=== PATIENT | female | born 1975 | race Caucasian/White ===

== ENCOUNTER 2016-05-30 18:38 | Inpatient (IN) | payer OTHER ==
[~2016-05-30] VITALS: Ht 170.2 cm; Wt 126.1 kg
--- NOTE | 2016-05-30 19:55 | PD ---
HPI Chief Complaint contractions Date Seen: May 30, 2016 Time Seen: 19:15 Travel History International Travel<30 Days: No Contact w/Intl Traveler<30Days: No Known Affected Area: No History of Present Illness HPI 41-year-old 2 para 1 at 39 weeks gestation who has been having contractions every 5 minutes the past several hours. She denies rupture membranes, bleeding, or decreased movement. Para: 11 : 22 History Past Medical History Narrative Medical asthma Obstetric History Obstetric History one prior vd uncomplicated course Past Surgical History Surgical History: No Previous Surgery Family History Family History: Negative Social History Alcohol Use: No Tobacco Use: No Substance Abuse: No Allergies-Medications Narrative Medication albuterol Review of Systems Except as stated in HPI: all other systems reviewed are Neg Physical Exam Narrative GENERAL: Well-nourished, well-developed patient. SKIN: Warm and dry. HEAD: Normocephalic and atraumatic. EYES: No scleral icterus. No injection or drainage. ENT: No nasal drainage noted. Mucous membranes pink. Airway patent. NECK: Supple, trachea midline. No JVD. CARDIOVASCULAR: Regular rate and rhythm without murmurs, gallops, or rubs. RESPIRATORY: Breath sounds equal bilaterally. No accessory muscle use. ABDOMEN/GI: Abdomen soft, non-tender, bowel sounds present, no rebound, no guarding Gravid to [-] weeks size Fundal Height: [38-] GENITOURINARY: External Genitalia: intact and normal in appearance BUS glands: [-] Cervix: [-1] Dilatation: [-] Effacement: [-50] Station: [-2-] Presentation: [-] Membranes: [intact] Uterine Contractions: [q5-] FHT's: Category: [-1] Baseline: [-] Reactive: [-yes] Variability: [-] Decels: [-] EXTREMITIES: No cyanosis or edema. BACK: Nontender without obvious deformity. No CVA tenderness. NEUROLOGICAL: Awake and alert. Motor and sensory grossly within normal limits. Five out of 5 muscle strength in all muscle groups. Normal speech. 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 Jorge Salmeron MD May 30, 2016 19:54
[2016-05-30] MEDS: LACTATED RINGER'S 1000 ML INJ 1,000 ML IV SCH ×2 (21:20→23:01)
[2016-05-30 22:00] VITALS: RESP 18
[2016-05-30] MEDS ORDERED: LACTATED RINGER'S 1000 ML INJ 1,000 ML IV PRN (22:34)
[2016-05-30] MEDS ORDERED: LIDOCAINE HCL 1% 50 ML VIAL I-DERMAL PRN (22:45)
[2016-05-30] MEDS ORDERED: CITRIC ACID-SODIUM CITRATE LIQ 30 ML UDC PO SCH (22:45)
[2016-05-30] MEDS ORDERED: OXYTOCIN 30 UNITS-500ML PREMIX 500 ML IV ONE (22:45)
[2016-05-30] MEDS ORDERED: LIDOCAINE HCL 1% 50 ML VIAL INFIL PRN (22:45)
[2016-05-30] MEDS ORDERED: SODIUM CHLORID 0.9% 500 ML INJ 500 ML IV PRN (22:45)
[2016-05-30] MEDS ORDERED: MINERAL OIL 10 ML VIAL TOPICAL PRN (22:45)
[2016-05-30 22:52] LABS: AUTOMATED NEUTROPHIL # 8.3 TH/MM3 (1.8-7.7); BASOPHIL # 0.1 TH/MM3 (0-0.2); BASOPHIL % 0.6 % (0.0-2.0); EOSINOPHIL # 0.2 TH/MM3 (0-0.4); EOSINOPHIL % 1.8 % (0.0-4.0); HEMATOCRIT 41.6 % (35.0-46.0); LYMPH % 15.2 % (9.0-44.0); LYMPHOCYTE # 1.6 TH/MM3 (1.0-4.8); MEAN CELL VOLUME 87.7 FL (80.0-100.0); MEAN CORPUSCULAR HEMOGLOBIN 30.8 PG (27.0-34.0); MEAN CORPUSCULAR HGB CONC 35.1 % (32.0-36.0); MONO % 4.3 % (0.0-8.0); NEUT % 78.1 % (16.0-70.0); PLATELET COUNT 219 TH/MM3 (150-450); RED BLOOD COUNT 4.74 MIL/MM3 (4.00-5.30); RED CELL DISTRIBUTION WIDTH 12.6 % (11.6-17.2); WHITE BLOOD COUNT 10.6 TH/MM3 (4.0-11.0)
[2016-05-30] MEDS ORDERED: SODIUM CHLOR 0.9% 1000 ML INJ 1,000 ML IV PRN (22:54)
[2016-05-30 22:58] VITALS: BP 118/66; PULSE 76
[2016-05-30 22:59] LABS: BLOOD, URINE NEG (NEG); COMMENT (UR) CULT NOT INDICATED; CULTURE IF INDICATED CULT NOT INDICATED; GLUCOSE,URINE NEG (NEG); KETONE, URINE NEG (NEG); NITRITE,URINE NEG (NEG); PH, URINE 6.5 (5.0-8.5); SQUAMOUS EPITHELIAL CELL URINE 4 /hpf (0-5); URINE COLOR LIGHT-YELLOW (YELLW/STRAW)
[2016-05-30 23:00] VITALS: RESP 18
[2016-05-30 23:08] LABS: HEMO FLAGS AUTO DIFF
[2016-05-30 23:46] LABS: PLATELET ESTIMATE SMEAR NORMAL (NORMAL)
[2016-05-30 23:47] LABS: PLATELET MORPHOLOGY NORMAL (NORMAL); SCAN/DIFF AUTO DIFF CONFIRMED
[2016-05-31] VITALS (106 sets, daily range): BP systolic 101–154; BP diastolic 46–99; PULSE 60–133; RESP 18–24; TEMP 97.7–98.6; O2SAT 96–100
[2016-05-31] MEDS: LACTATED RINGER'S 1000 ML INJ 1,000 ML IV SCH ×2 (05:40→09:01)
[2016-05-31] MEDS ORDERED: fentaNYL 2MCG-BUPIV 0.125% INJ 100 ML ONE (05:41)
[2016-05-31] MEDS ORDERED: ePHEDrine/NS 50 MG/5 ML SYR IV PRN (07:15)
[2016-05-31] MEDS ORDERED: fentaNYL 2MCG-BUPIV 0.125% INJ 100 ML EPIDURAL SCH (07:15)
[2016-05-31] MEDS ORDERED: DO NOT ADMINISTER ANTICOAGULANTS XX PRN (07:15)
[2016-05-31] MEDS ORDERED: NO SYSTEM NARCOTICS XX PRN (07:15)
[2016-05-31] MEDS ORDERED: OXYTOCIN 30 UNITS-500ML PREMIX 500 ML IV SCH (08:30)
[2016-05-31] MEDS ORDERED: OXYTOCIN 10 UNIT/ML AMP ONE (10:24)
[2016-05-31] MEDS: ACETAMINOPHEN 1000 MG/100 ML VIAL IV ONE ×2 (10:25→10:55)
[2016-05-31] MEDS ORDERED: ceFAZolin INJ 1,000 MG VIAL ONE (10:34)
[2016-05-31 11:16] LABS: BLOOD GAS BASE EXCESS -4.4 mmol/L (-2-2); BLOOD GAS O2 HGB SATURATION 12 % (90-100); CORD BLOOD GAS HCO3 21 mmol/L (21-29); CORD BLOOD GAS PCO2 40 mmHG (34-78); CORD BLOOD GAS PH 7.33 (7.14-7.42); CORD BLOOD GAS PO2 11 mmHG (3.0-40.0); DRAW SITE CORD BLOOD; STAT NO
[2016-05-31] MEDS ORDERED: MORPHINE SULFATE PF 5 MG/10 ML VIAL ONE (11:36)
[2016-05-31] MEDS ORDERED: ONDANSETRON HCL 4 MG/2 ML VIAL ONE (11:36)
--- NOTE | 2016-05-31 11:37 | HHI.DCPOC ---
Discharge Care Plan Diagnosis: (1) S/P primary low transverse Your Health Problems Are: delivery Report Symptoms to Your Doctor -Temperate above 100.5 degrees -Redness, of incision or excessive or foul smelling drainage -Unusual pain or calf pain -Increased vaginal bleeding -Painful or difficulty urinating -Feelings of extreme sadness or anxiety after 2 weeks Goals to Promote Your Health * To prevent worsening of your condition and complications * To maintain your health at the optimal level Directions to Meet Your Goals Take your medications as prescribed Follow your dietary instruction Follow activity as directed Ensure plenty of rest for recovery Drink fluids for hydration Keep your appointments as scheduled Take your immunizations and boosters as scheduled If your symptoms worsen call your PCP, if no PCP go to Urgent Care Center or Emergency Room Smoking is Dangerous to Your Health. Avoid second hand smoke Call the 24-hour crisis hotline for domestic abuse at Nay Carter MD May 31, 2016 11:37
[2016-05-31] MEDS ORDERED: ONDANSETRON HCL 4 MG/2 ML VIAL IV PUSH PRN (11:45)
[2016-05-31] MEDS ORDERED: oxyCODONE/ACETAMINOPHEN 5 MG/325 MG TAB PO PRN (11:45)
[2016-05-31] MEDS ORDERED: SODIUM CHLORIDE 0.9% FLUSH 5 ML FLUSH IV SCH (11:45)
[2016-05-31] MEDS ORDERED: OXYTOCIN 30 UNITS-500ML PREMIX 500 ML IV ONE (11:45)
[2016-05-31] MEDS ORDERED: ZOLPIDEM TARTRATE 5 MG TAB PO PRN (11:45)
[2016-05-31] MEDS ORDERED: SODIUM CHLORIDE 0.9% FLUSH 5 ML FLUSH IV PRN (11:45)
--- NOTE | 2016-05-31 11:45 | PD.OB.DELI ---
Procedure Note Section Procedure Pre Op Diagnosis: (1) Non-reassuring electronic monitoring tracing Post Op Diagnosis: (1) Non-reassuring electronic monitoring tracing (2) S/P primary low transverse Performed by Nay Carter Procedure: Primary Low Transverse Sec Indication for delivery: Nonreassuring heart tracing Informed consent obtained: For anesthesia, For procedure Confirmed correct: Patient, Procedure, Site, Time-out taken Anesthesia: Epidural Medication prior to procedure: As documented in eMAR Monitoring during procedure: Blood pressure monitoring, manager monitoring, Pulse oximetry Urinary catheter: Inserted using sterile technique (previously when epidural placed in labor room), To dependent drainage, ml urine output (600) Sterile preparation: Duraprep, In usual fashion, With drapes to expose affected area Position: Supine with wedge to right side Operative Features Skin Incision: Pfannenstiel Uterine Incision: Low transverse w/knife / blunt ext Membranes Ruptured: Previously, Amount of liquid (scant), Appearance of fluid ( thick meconium) Presentation: Vertex (with neck hyperextended prior to delivery; caput & molding present) Time of : 10:58 Delivery of : Uneventful : Female One Minute : 2 Five Minute : 8 Weight: 2950g (6#8oz) Status of : Viable, Cord blood, Nursery present Placenta delivered: Intact Medications: Antibiotics (ancef 2g IV preop) Estimated blood loss: 600 mL Procedure tolerated: Well Maternal Condition: Stable Condition: Stable (nursery status; small superficial L scalp laceration, hemostatic with pressure; nursery & family aware) Procedure in detail see dictated op note for full details Nay Carter MD May 31, 2016 11:45
[2016-05-31] MEDS ORDERED: OXYTOCIN 30 UNITS-500ML PREMIX 500 ML ONE (12:25)
[2016-05-31] MEDS ORDERED: EPIDURAL-DO NOT ADMINISTER ANTICOAGULANTS XX PRN (15:15)
[2016-05-31] MEDS ORDERED: ceFAZolin 2 GM PREMIX 50 ML IV ONE (15:15)
[2016-05-31] MEDS ORDERED: EPIDURAL-DIPHENHYDRAMINE HCL 50 MG CAP PO PRN (15:15)
[2016-05-31] MEDS ORDERED: EPIDURAL-NALOXONE HCL 0.4 MG/ML AMP IV PRN (15:15)
[2016-05-31] MEDS ORDERED: EPIDURAL-NO SYSTEMIC NARCOTICS XX PRN (15:15)
[2016-05-31] MEDS ORDERED: EPIDURAL-DIPHENHYDRAMINE HCL 50 MG/ML VIAL IV PUSH PRN (15:15)
[2016-05-31] MEDS ORDERED: ACETAMINOPHEN 1000 MG/100 ML VIAL IV SCH (16:00)
[2016-05-31] MEDS ORDERED: LACTATED RINGER'S 1000 ML INJ 1,000 ML IV SCH (16:41)
[2016-05-31] MEDS ORDERED: ACETAMINOPHEN 1000 MG/100 ML VIAL IV PRN (18:30)
[2016-05-31] MEDS: oxyCODONE/ACETAMINOPHEN 5 MG/325 MG TAB PO PRN ×2 (19:01→23:12)
[2016-05-31] MEDS: SIMETHICONE 80 MG CHEWABLE TAB PO PRN ×2 (19:01→23:42)
[2016-05-31] MEDS ORDERED: OXYTOCIN 30 UNITS-500ML PREMIX 500 ML IV PRN (21:45)
[2016-06-01] VITALS (8 sets, daily range): BP systolic 126–139; BP diastolic 58–82; PULSE 73–86; RESP 16–20; TEMP 98–98.4
[2016-06-01] MEDS: oxyCODONE/ACETAMINOPHEN 5 MG/325 MG TAB PO PRN ×6 (03:33→23:49)
[2016-06-01 05:38] LABS: AUTOMATED NEUTROPHIL # 9.4 TH/MM3 (1.8-7.7); BASOPHIL % 0.4 % (0.0-2.0); EOSINOPHIL # 0.1 TH/MM3 (0-0.4); EOSINOPHIL % 0.9 % (0.0-4.0); HEMATOCRIT 31.3 % (35.0-46.0); HEMO FLAGS DIFF FINAL; LYMPHOCYTE # 1.4 TH/MM3 (1.0-4.8); MEAN CELL VOLUME 89.6 FL (80.0-100.0); MEAN CORPUSCULAR HEMOGLOBIN 30.3 PG (27.0-34.0); MEAN CORPUSCULAR HGB CONC 33.9 % (32.0-36.0); MONO % 3.4 % (0.0-8.0); NEUT % 83.3 % (16.0-70.0); PLATELET COUNT 167 TH/MM3 (150-450); RED BLOOD COUNT 3.49 MIL/MM3 (4.00-5.30); RED CELL DISTRIBUTION WIDTH 12.8 % (11.6-17.2); WHITE BLOOD COUNT 11.3 TH/MM3 (4.0-11.0)
[2016-06-01] MEDS: SIMETHICONE 80 MG CHEWABLE TAB PO PRN ×3 (08:01→20:22)
[2016-06-01] MEDS: DOCUSATE SODIUM 50 MG/SENNA 8.6 MG TAB PO PRN ×2 (08:01→20:22)
--- NOTE | 2016-06-01 08:30 | HHI.OB ---
Subjective Post Operative Day: 1 Remarks doing well, amblating, able to void. feels a little sore Objective Vitals/I&O Vital Signs Date Time Temp Pulse Resp B/P Pulse Ox O2 Delivery O2 Flow Rate FiO2 06/01/16 04:42 20 06/01/16 04:00 98.0 74 131/63 06/01/16 04:00 18 06/01/16 04:00 16 06/01/16 02:00 16 06/01/16 01:00 16 06/01/16 00:00 98.0 06/01/16 00:00 18 06/01/16 00:00 73 132/58 05/31/16 23:00 18 05/31/16 22:00 18 05/31/16 21:00 20 05/31/16 20:00 97.9 20 05/31/16 20:00 89 143/82 05/31/16 17:15 98.1 76 20 144/81 05/31/16 14:50 98.6 63 20 153/77 05/31/16 13:10 97.8 143/78 05/31/16 13:10 18 05/31/16 13:02 60 100 05/31/16 12:55 18 05/31/16 12:55 64 132/71 99 05/31/16 12:40 63 18 134/74 05/31/16 12:38 99 05/31/16 12:25 20 130/71 05/31/16 12:24 76 99 05/31/16 12:24 72 97 05/31/16 12:10 69 20 109/58 96 05/31/16 12:10 18 99 05/31/16 11:55 97 05/31/16 11:55 68 20 124/67 05/31/16 11:55 96 05/31/16 11:35 72 119/60 05/31/16 11:35 97.7 24 05/31/16 11:35 99 05/31/16 10:21 133 144/99 05/31/16 10:20 100 05/31/16 10:20 112 05/31/16 10:15 78 05/31/16 10:10 100 05/31/16 10:10 78 05/31/16 10:05 80 05/31/16 10:05 100 05/31/16 10:01 71 131/63 05/31/16 10:00 73 05/31/16 09:41 73 138/61 05/31/16 09:40 74 05/31/16 09:35 78 05/31/16 09:32 77 142/53 05/31/16 09:30 72 05/31/16 09:25 73 05/31/16 09:21 75 134/57 05/31/16 09:20 76 100 05/31/16 09:15 82 05/31/16 09:10 67 05/31/16 09:05 98.4 70 18 05/31/16 09:01 71 138/58 05/31/16 09:00 76 05/31/16 08:55 69 05/31/16 08:50 70 05/31/16 08:45 70 05/31/16 08:40 78 05/31/16 08:35 80 05/31/16 08:30 74 Result Diagram: 06/01/16 0528 Objective Remarks GENERAL: Well-nourished, well-developed patient. CARDIOVASCULAR: Regular rate and rhythm without murmurs, gallops, or rubs. RESPIRATORY: Breath sounds equal bilaterally. No accessory muscle use. ABDOMEN/GI: Abdomen soft, non-tender, bowel sounds present. Incision: dressing, Clean, dry and intact. Fundus: Firm, non-tender at umbilicus. GENITOURINARY: Light to moderate bleeding. EXTREMITIES: No cyanosis or edema, non-tender, without signs of DVT. Medications and IVs Current Medications Medications (Trade) Dose Ordered Sig/Magalys Route Start Time Stop Time Status Last Admin (Lr 1000 ml Inj) 1,000 ml @ 100 mls/hr Q10H IV 05/31/16 16:41 06/01/16 12:40 05/31/16 19:02 (NS Flush) 2 ml BID IV 05/31/16 11:45 (NS Flush) 2 ml UNSCH PRN IV 05/31/16 11:45 (Mylicon Chew) 80 mg QID PRN PO 05/31/16 11:45 06/01/16 08:01 (Tylenol) 650 mg Q6H PRN PO 06/01/16 11:45 (Percocet 5-325 Mg) 1 tab Q4H PRN PO 05/31/16 11:45 (Percocet 5-325 Mg) 2 tab Q4H PRN PO 05/31/16 11:45 06/01/16 08:01 (Lacy-Colace) 2 tab Q12H PRN PO 05/31/16 11:45 06/01/16 08:01 (Ambien) 5 mg HS PRN PO 05/31/16 11:45 (M-M-R Ii Inj) 0.5 ml ONCE ONCE SQ 06/01/16 16:00 06/01/16 16:01 (Boostrix Inj) 0.5 ml ONCE ONCE IM 06/01/16 16:00 06/01/16 16:01 (Zofran Inj) 4 mg Q6H PRN IV PUSH 05/31/16 11:45 Miscellaneous Information NO SYSTEMIC NARCOTICS TO BE GIVEN FO... UNSCH PRN XX 05/31/16 15:15 06/01/16 15:14 (Narcan Inj) 0.4 mg UNSCH PRN IV 05/31/16 15:15 06/01/16 15:14 (Benadryl Inj) 25 mg Q6H PRN IV PUSH 05/31/16 15:15 06/01/16 15:14 (Benadryl) 50 mg Q6H PRN PO 05/31/16 15:15 06/01/16 15:14 Miscellaneous Information ALL NURSING DEPARTMENTS UNSCH PRN XX 05/31/16 15:15 06/01/16 15:14 Assessment/Plan Problem List: (1) S/P primary low transverse Assessment and Plan POD 1 LTCD for NRFHT Cont routine post op care, encourage ambulation. Advance diet as tolerated Discharge Planning POD 3 Anisha Anaya MD Jun 01, 2016 08:30
[2016-06-01] MEDS ORDERED: ACETAMINOPHEN 325 MG TAB PO PRN (11:45)
--- NOTE | 2016-06-01 13:22 | MP ---
cc: KAYLENE LYNN DATE OF SURGERY 05/31/2016 PREOPERATIVE DIAGNOSIS 1. Intrauterine at term. 2. Non-reassuring heart tones 3. Thick meconium POSTOPERATIVE DIAGNOSIS 1. Intrauterine at term. 2. Non-reassuring heart tones 3. Thick meconium 4. Postop day number zero. INDICATIONS Georgette South is a 41-year-old 2 now para 2-0-0-2 who was admitted through the labor and delivery triage area on the evening of May 30. She progressed on exam, had rupture of membranes and dilated to 5 cm at approximately 04:30 in the morning on May 31. Thick meconium was noted at time of rupture and an IUPC was placed due to the patient not having much change in dilation after 07:00 a.m. With Pitocin augmentation, the patient began to have non-reassuring heart tracing, Pitocin was turned off. After period of approximately three hours, the patient continued to have a category II tracing not alleviated by conservative measures and no cervical change at that time. It was decided that was indicated. PROCEDURE PERFORMED Primary low transverse delivery. SURGEON Kaylene Lynn MD TYPE OF ANESTHESIA Epidural ESTIMATED BLOOD LOSS 600 mL IV FLUID PLACEMENT 1100 mL URINE OUTPUT 600 mL of clear fluid draining in a Collado bag at the end of the procedure. SPECIMEN None COMPLICATIONS Include a small superficial left scalp laceration to the infant and thick meconium. COUNTS Sponge, lap, instrument and needle are correct x2 at the conclusion of the procedure. PROPHYLAXIS Ancef 2 grams IV was given pre-incision and SCD's were on and functioning throughout the entire case. INTRAOPERATIVE FINDINGS Include a female who on entry into the uterine cavity was found to have neck in hyper-extension with caput and molding deep in the canal. Once she was delivered, she was somewhat limp and did not initially cry. Amniotic fluid had thick meconium and there was also terminal meconium on delivery. 's were 2 and 8, weight 6 pounds 8 ounces. Cord gas was drawn and was 7.33. PROCEDURE IN DETAIL After reviewing the informed consent, the patient was taken to the operating suite where a time-out was performed to identify the patient, planned procedure and any known allergies to drugs or drug products. The patient was placed in dorsal supine position with a bump under her right side as epidural catheter was already in place as per labor process as was a Collado catheter. Abdomen was prepped and draped in normal sterile fashion. Attention was turned abdominally where a Pfannenstiel's type skin incision was made with a scalpel, carried down to the underlying layer of fascia with the Bovie. The fascia was incised in the midline incision was extended laterally with sharp dissection using Gutiérrez scissors. The superior aspect of the fascial incision was elevated with Jaswinder clamps. The rectus muscles were dissected off sharply with Gutiérrez scissors. Kochers were then moved to the inferior aspect of the fascial incision, elevated and again rectus muscles were dissected off sharply. Rectus muscles were then in the midline. Peritoneum was identified, elevated with a hemostat and entered sharply with Metzenbaum scissors. Incision was extended superiorly and inferiorly with good visualization of intra-abdominal contents. Bladder blade was placed. A bladder flap was not made. A low transverse uterine incision was made with a scalpel. The lower uterine segment was very thin and after just a single swipe with the scalpel, the uterus with immediately a small laceration noted to the left scalp. The 's neck was found to be hyper-extended. With gentle maneuvering, the head was flexed and delivered out through the incision. The rest of body readily followed. Thick meconium was encountered and terminal meconium as well. The cord was doubly clamped and cut and the was handed off to the awaiting nursery staff. Cord segment was taken as was a cord blood sample. Placenta was then delivered spontaneously with gentle cord traction and fundal massage. Uterus was exteriorized, cleared of clots and debris with sterile moist lap sponges. The hysterotomy was repaired in a double layer with #1 chromic first in a running locking layer, then in an imbricating fashion. Excellent hemostasis was noted. Irrigation with suction was performed of the pelvis. The uterus was returned to the abdomen. Additional irrigation with suction was performed. Excellent hemostasis was noted. The peritoneum was closed in a running layer with 2-0 chromic. Fascia was closed in running layer of #1 Vicryl. Additional irrigation with suction was performed and a series of interrupted sutures using 2-0 chromic was used to close the subcutaneous space. The skin was closed with 3-0 Monocryl in subcuticular fashion. The skin was cleaned and dried. Steri-Strips were placed as well as a standard dressing. The procedure concluded at this point. DISPOSITION The patient is resting in the Post Anesthesia Care Unit with her infant who is nursery status. Estimated length of stay is [id number] postop days. MD LIZZETTE Lino/SHUBHAM /11:49 AM /1:12 PM [id number]
[2016-06-01] MEDS ORDERED: MEASLES, MUMPS, RUBELLA VACCINE 0.5 ML VIAL SQ ONE (16:00)
[2016-06-01] MEDS ORDERED: DIPHTH/TETANUS/ACEL PERTUSSIS (BOOSTER) 0.5 ML VIAL/PFS IM ONE (16:00)
[2016-06-02] MEDS: oxyCODONE/ACETAMINOPHEN 5 MG/325 MG TAB PO PRN ×2 (04:36→08:53)
[2016-06-02 07:29] VITALS: BP 126/69; PULSE 74; RESP 18; TEMP 97.9
--- NOTE | 2016-06-02 08:02 | HHI.OB ---
Subjective Post Operative Day: 2 Remarks Having gas and incisional pain would like discharge today desires tubal excision mary nursing well Objective Vitals/I&O Vital Signs Date Time Temp Pulse Resp B/P Pulse Ox O2 Delivery O2 Flow Rate FiO2 06/02/16 07:29 97.9 74 18 126/69 06/01/16 19:13 98.0 84 18 126/61 06/01/16 16:00 98.4 76 18 136/74 Result Diagram: 06/01/16 0528 Objective Remarks GENERAL: Well-nourished, well-developed patient. CARDIOVASCULAR: Regular rate and rhythm without murmurs, gallops, or rubs. RESPIRATORY: Breath sounds equal bilaterally. No accessory muscle use. ABDOMEN/GI: Abdomen soft, non-tender, bowel sounds present. Incision: dressing, Clean, dry and intact. Fundus: Firm, non-tender at umbilicus. GENITOURINARY: Light to moderate bleeding. EXTREMITIES: No cyanosis or edema, non-tender, without signs of DVT. Medications and IVs Current Medications Medications (Trade) Dose Ordered Sig/Magalys Route Start Time Stop Time Status Last Admin (NS Flush) 2 ml BID IV 05/31/16 11:45 (NS Flush) 2 ml UNSCH PRN IV 05/31/16 11:45 (Mylicon Chew) 80 mg QID PRN PO 05/31/16 11:45 06/01/16 20:22 (Tylenol) 650 mg Q6H PRN PO 06/01/16 11:45 (Percocet 5-325 Mg) 1 tab Q4H PRN PO 05/31/16 11:45 (Percocet 5-325 Mg) 2 tab Q4H PRN PO 05/31/16 11:45 06/02/16 04:36 (Lacy-Colace) 2 tab Q12H PRN PO 05/31/16 11:45 06/01/16 20:22 (Ambien) 5 mg HS PRN PO 05/31/16 11:45 (Zofran Inj) 4 mg Q6H PRN IV PUSH 05/31/16 11:45 Assessment/Plan Problem List: (1) S/P primary low transverse Assessment and Plan POD 2 desires discharge will see in one week and summer counselor on tubal ligation Discharge Planning POD 2 Jaci Talamantes MD Jun 02, 2016 08:02
[2016-06-02] MEDS ORDERED: OXYC1TAB63 PO (08:04)
--- NOTE | 2016-06-02 08:04 | HHI.DCPOC ---
Discharge Care Plan Report Symptoms to Your Doctor -Temperate above 100.5 degrees -Redness, of incision or excessive or foul smelling drainage -Unusual pain or calf pain -Increased vaginal bleeding -Painful or difficulty urinating -Feelings of extreme sadness or anxiety after 2 weeks Goals to Promote Your Health * To prevent worsening of your condition and complications * To maintain your health at the optimal level Directions to Meet Your Goals Take your medications as prescribed Follow your dietary instruction Follow activity as directed Ensure plenty of rest for recovery Drink fluids for hydration Keep your appointments as scheduled Take your immunizations and boosters as scheduled If your symptoms worsen call your PCP, if no PCP go to Urgent Care Center or Emergency Room Smoking is Dangerous to Your Health. Avoid second hand smoke Call the 24-hour crisis hotline for domestic abuse at Jaci Talamantes MD Jun 02, 2016 08:04
== END 2016-06-02 10:37 | disposition home or self-care (01) | DRG 766 ==
LOC: HOBED 18:38 → H2EA 20:48 → H1EA 05-31 13:27
PROVIDERS: ADMIT Obstetrics & Gynecology; ATTEND Obstetrics & Gynecology
PROC: 10D00Z1 Extraction of Products of Conception, Low, Open Approach (ICD-10-PCS; principal; 2016-05-31)
PROC: 10H07YZ Insertion of Other Device into Products of Conception, Via Natural or Artificial Opening (ICD-10-PCS; 2016-05-31)
PROC: 3E0S3CZ (ICD-10-PCS; 2016-05-31)
PROC: 00HU33Z Insertion of Infusion Device into Spinal Canal, Percutaneous Approach (ICD-10-PCS; 2016-05-31)
DX: O76 Abnormality in fetal heart rate and rhythm complicating labor and delivery (principal); J45.909 Unspecified asthma, uncomplicated; O77.0 Labor and delivery complicated by meconium in amniotic fluid; O26.899 Other specified pregnancy related conditions, unspecified trimester; O09.523 Supervision of elderly multigravida, third trimester; Z3A.39 39 weeks gestation of pregnancy; Z37.0 Single live birth
CPT/HCPCS: 81001; 82805; 85025; 86900; 86901; 99285; J0131; J0690; J2274; J2405; J2590; J3010; J7030; J7120